=== PATIENT | male | born 1975 | race Caucasian/White ===

== ENCOUNTER 2020-05-04 14:17 | Emergency (ER) | payer SELFPAY ==
--- NOTE | 2020-05-04 15:00 | ER Document Report ---
ED General - General Chief Complaint: Shortness Of Breath Stated Complaint: SHORT OF BREATH,NAUSEA Time Seen by Provider: 05/04/20 14:30 Primary Care Provider: MATT HODGE [NO LOCAL MD] - Follow up as needed Notes: CHIEF COMPLAINT: Multiple complaints HPI: 45-year-old male with multiple complaints. Patient has history of hypothyroid hypertension and diabetes type 2. Patient has had fatigue and generalized weakness for 2 weeks. Believes that his diabetes was acting up as his sugars were elevated. Saw his PCP 2 weeks ago they changed him back to metformin but he still has the fatigue and generalized weakness. Has had occasional diarrhea no abdominal pain no dysuria. No specific shortness of breath. Patient states when he goes from inside to outside into the heat he does feel like his chest tightens up but it does not happen when he is in the house in the air conditioning. No headache no sore throat. He is concerned about COVID-19 ROS: See HPI - all other systems were reviewed and are otherwise negative Constitutional: no fever Eyes: no drainage, no blurred vision ENT: no runny nose, no sore throat Cardiovascular: no chest pain Resp: no SOB, occasional cough GI: no vomiting, occasional diarrhea, no abdominal pain : no dysuria Integumentary: no rash Allergy: no hives Musculoskeletal: no extremity pain or swelling Neurological: no numbness/tingling, positive generalized weakness MEDICATIONS: I agree with the patient medications as charted by the RN. ALLERGIES: I agree with the allergies as charted by the RN. PAST MEDICAL HISTORY/PAST SURGICAL HISTORY: Reviewed and agree as charted by RN. SOCIAL HISTORY: Reviewed and agree as charted by RN. FAMILY HISTORY: No significant familial comorbid conditions directly related to patient complaint EXAM: Reviewed vital signs as charted by RN. CONSTITUTIONAL: Alert and oriented and responds appropriately to questions. Well-appearing; well-nourished HEAD: Normocephalic; atraumatic EYES: PERRL; Conjunctivae clear, sclerae non-icteric ENT: normal nose; no rhinorrhea; moist mucous membranes; pharynx without lesions noted, no uvula edema or deviation, no tonsillar hypertrophy, phonation normal NECK: Supple without meningismus; non-tender; no cervical lymphadenopathy, no masses CARD: RRR; no murmurs, no clicks, no rubs, no gallops; symmetric distal pulses RESP: Normal chest excursion without splinting or tachypnea; breath sounds clear and equal bilaterally; no wheezes, no rhonchi, no rales, pulse oximetry 100% on room air not hypoxic ABD/GI: Normal bowel sounds; non-distended; soft, non-tender, no rebound, no guarding; no palpable organomegaly or masses. BACK: The back appears normal and is non-tender to palpation, there is no CVA tenderness EXT: Normal ROM in all joints; non-tender to palpation; no cyanosis, no effus ions, no edema SKIN: Normal color for age and race; warm; dry; good turgor; no acute lesions noted NEURO: Moves all extremities equally; Motor and sensory function intact PSYCH: The patient's mood and manner are appropriate. Grooming and personal hygiene are appropriate. MDM: 45-year-old male with multiple generalized complaints over the last 2 weeks. Will check baseline screening lab work. Will obtain a chest x-ray as he has had an occasional cough. Have low suspicion for ACS has no chest pain chest tightness at rest or in the air conditioning but states it occurs when he goes out in the heat during the day. He is concerned about COVID-19, will obtain COVID testing if tests are without abnormality he will be discharged as a person under investigation self quarantine at home follow-up PCP pending test result - Related Data Home Medications: Metformin, Lisinopril, Synthroid Past Medical History - Social History Smoking Status: Current Every Day Smoker Family History: Reviewed & Not Pertinent - Past Medical History Cardiac Medical History: Reports: Hx Hypertension Endocrine Medical History: Reports: Hx Diabetes Mellitus Type 2 Physical Exam - Vital signs Vitals: Temp Pulse Resp BP Pulse Ox 99.3 F 89 20 122/89 H 100 05/04/20 14:22 05/04/20 14:22 05/04/20 14:22 05/04/20 14:22 05/04/20 14:22 Course - Re-evaluation Re-evalutation: 05/04/20 16:40 Patient's lab work does not show significant acute abnormalities, he is still hypothyroid with a TSH of 9.41. White count mildly elevated at 13 nonspecific. Has no other focal complaints, no reproducible abdominal pain. Urine does not show evidence of infection. Will be discharged as a person under investigation follow-up with his primary care provider. Self quarantine until test results - Vital Signs Vital signs: Temp Pulse Resp BP Pulse Ox 99.3 F 89 20 122/89 H 100 05/04/20 14:22 05/04/20 14:22 05/04/20 14:22 05/04/20 14:22 05/04/20 14:22 - Laboratory Result Diagrams: 05/04/20 14:51 05/04/20 14:51 Laboratory results interpreted by me: 05/04/20 05/04/20 05/04/20 14:51 14:51 14:51 WBC 13.1 H RBC 5.59 H RDW 15.0 H Absolute Neuts (auto) 8.8 H Sodium 135.1 L BUN 21 H Calcium 10.5 H TSH 9.41 H Discharge - Discharge Clinical Impression: Person under investigation for COVID-19 Fatigue Qualifiers: Fatigue type: unspecified Qualified Code(s): R53.83 - Other fatigue Hypothyroid Qualifiers: Hypothyroidism type: unspecified Qualified Code(s): E03.9 - Hypothyroidism, unspecified Condition: Stable Disposition: HOME, SELF-CARE Additional Instructions: Your lab work did not show specific acute abnormalities other than your TSH level remaining high at 9.41. Please let your primary care provider know this as they may make additional changes to your thyroid medications. You are considered a person under investigation at this time self quarantine at home until you receive a test result this will usually be within 2 to 5 days. You should receive notification from the hospital. Referrals: LOCALMD,NO [NO LOCAL MD] - Follow up as needed
--- NOTE | 2020-05-04 15:36 | RADIOLOGY REPORT (SQ) ---
EXAM DESCRIPTION: CHEST SINGLE VIEW IMAGES COMPLETED DATE/TIME: 05/04/2020 3:28 pm REASON FOR STUDY: cough COMPARISON: None. TECHNIQUE: Single frontal radiographic view of the chest acquired. NUMBER OF VIEWS: One view. LIMITATIONS: None. FINDINGS: LUNGS AND PLEURA: No pneumothorax. No consolidation or pleural effusion. MEDIASTINUM AND HILAR STRUCTURES: No contour abnormalities. HEART AND VASCULAR STRUCTURES: Heart normal size. BONES: No acute findings. HARDWARE: None in the chest. OTHER: No other significant finding. IMPRESSION: NO ACUTE FINDINGS. TECHNICAL DOCUMENTATION: JOB ID: [id number] 2010 [employer]- All Rights Reserved Reading location - IP/workstation name: [email or web address]
[2020-05-04 15:49] LABS: ABSOLUTE BASOPHILS # (AUTO) 0.1 10^3/uL (0.0-0.2); ABSOLUTE EOSINOPHILS # (AUTO) 0.4 10^3/uL (0.0-0.6); ABSOLUTE MONOCYTES (AUTO) 0.8 10^3/uL (0.1-1.4); ABSOLUTE NEUT (AUTO) 8.8 10^3/uL (1.7-8.2); BASOPHILS % (AUTO) 1.1 % (0-2); HEMATOCRIT 48.7 % (37.9-51.0); HEMOGLOBIN 16.8 g/dL (13.5-17.0); LYMPHOCYTES % (AUTO) 22.7 % (13-45); MEAN CORPUSCULAR HGB CONC 34.5 g/dL (32.0-36.0); MEAN CORPUSCULAR VOLUME 87 fl (80-97); MONOCYTES % (AUTO) 6.1 % (3-13); PLATELET COUNT 257 10^3/uL (150-450); RED BLOOD COUNT 5.59 10^6/uL (4.35-5.55); SEGMENTED NEUTROPHILS % (AUTO) 67.1 % (42-78); TOTAL CELLS COUNTED % (AUTO) 100 %; WHITE BLOOD COUNT 13.1 10^3/uL (4.0-10.5)
[2020-05-04 15:53] LABS: APPEARANCE,URINE CLEAR; BILIRUBIN,URINE NEGATIVE (NEGATIVE); COLOR,URINE YELLOW; GLUCOSE, URINE NEGATIVE (NEGATIVE); KETONES,URINE NEGATIVE (NEGATIVE); LEUKOCYTE ESTERASE,URINE NEGATIVE (NEGATIVE); NITRITE,URINE NEGATIVE (NEGATIVE); PROTEIN,URINE NEGATIVE (NEGATIVE); URINE SPECIFIC GRAVITY 1.019; UROBILINOGEN,URINE NEGATIVE mg/dL (<2.0)
[2020-05-04 16:09] LABS: ALKALINE PHOSPHATASE 61 U/L (38-126); ANION GAP 10 (5-19); ASPARTATE AMINO TRANSFERASE 22 U/L (17-59); BILIRUBIN,TOTAL 0.7 mg/dL (0.2-1.3); BLOOD UREA NITROGEN 21 mg/dL (7-20); CALCIUM 10.5 mg/dL (8.4-10.2); CARBON DIOXIDE 25 mmol/L (22-30); CHLORIDE 100 mmol/L (98-107); GLUCOSE 105 mg/dL (75-110); POTASSIUM 4.7 mmol/L (3.6-5.0); TOTAL PROTEIN 8.2 g/dL (6.3-8.2)
[2020-05-04 17:19] VITALS: BP 120/78
--- NOTE | 2020-05-04 19:20 | EKG REPORT ---
SEVERITY:- NORMAL ECG - SINUS RHYTHM : Confirmed by: Carlota Montes 04-May-2020 19:19:09
== END 2020-05-04 17:20 | disposition home or self-care (01) ==
LOC: ER 14:17
DX: R53.83 Other fatigue (principal); E03.9 Hypothyroidism, unspecified; R06.02 Shortness of breath; R05 Cough; I10 Essential (primary) hypertension; R53.1 Weakness; Z20.828 Contact with and (suspected) exposure to other viral communicable diseases; F17.200 Nicotine dependence, unspecified, uncomplicated; E11.9 Type 2 diabetes mellitus without complications; Z79.84 Long term (current) use of oral hypoglycemic drugs; Z79.899 Other long term (current) drug therapy
CPT/HCPCS: 93005; 99285; 36415; 84443; 85025; 87635; 80053; 81001; 84484; 71045; 93010; C9803